=== PATIENT | male | born 1965 | race Caucasian/White ===

== ENCOUNTER → 2019-09-22 11:20 | Outpatient (CLI) | payer OTHER, SELFPAY ==
--- NOTE | ~2019-09-22 | XR_ITS ---
EXAMINATION: XR hip LT min 3V w AP pelvis DATE: 09/22/2019 11:47 INDICATION: Right cyst with arthropathy presenting with left hip pain after moving a couch 2 weeks pr ior. TECHNIQUE: Anteroposterior view of the pelvis and anteroposterior and frog-leg lateral views of the l eft hip were obtained. COMPARISON: None. FINDINGS: Alignment is normal. No fracture or suspected avascular necrosis. Minimal bilateral hip osteoarthriti s with axial predominant nonuniform joint space narrowing. Sacral arches are intact. 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 Lumbar spondylosis with mild to moderate left-sided predominan t disc height loss at L4-L5 and 4 mm right lateral listhesis of L4 on L5. Multiple phleboliths in the right hemipelvis. IMPRESSION: 1. Moderate spondylosis at L4-L5. Otherwise minimal to mild degenerative skeletal changes. Reviewed, dictated and finalized at location A. [employer] IMPRESSION: 1. Moderate spondylosis at L4-L5. Otherwise minimal to mild degenerative skelet al changes.
== END ==
DX: L40.50 Arthropathic psoriasis, unspecified (principal); M25.552 Pain in left hip; Z79.899 Other long term (current) drug therapy; M47.896 Other spondylosis, lumbar region
CPT/HCPCS: 73502

== ENCOUNTER 2023-01-24 00:38 | Day surgery (SDC) | payer OTHER, BC, SELFPAY ==
[2023-01-18 09:07] VITALS: BMI 28.8
[2023-01-24 06:55] VITALS: BP 145/96; PULSE 67; RESP 18; TEMP 36.4; O2SAT 100
[2023-01-24] MEDS: LACTATED RINGERS 1,000 ML 150 ML IV CONT (07:08)
--- NOTE | 2023-01-24 07:31 | WPDANESEPPF ---
Anes - Initial Pre Proc Eval Procedure: Operation Date: 01/24/23 08:00 Proposed Procedures p Colonoscopy - Taurus Rivera MD Date/Time: 01/24/23 07:31 Surgeon: Taurus Rivera MD Pre Op Diagnosis: hx colon polyps Patient Data Age: 57 Gender: M Height: 1.73 m Weight: 86.4 kg Last Vital Signs Temp 36.4 C 01/24/23 06:55 Pulse 67 01/24/23 06:55 Resp 18 01/24/23 06:55 BP 145/96 H 01/24/23 06:55 Pulse Ox 100 01/24/23 06:55 O2 Del Method Room Air 01/24/23 06:55 Allergies Allergy/AdvReac Type Severity Reaction Status Date / Time No Known Allergies Allergy Verified 01/24/23 06:53 Home Medications Medication Instructions Recorded Confirmed Type cholecalciferol (vitamin D3) 125 2,000 unit PO DAILY 12/06/21 01/18/23 History mcg (5,000 unit) capsule folic acid 1 mg tablet 1 mg PO DAILY 12/06/21 01/18/23 History meloxicam 15 mg tablet 15 mg PO DAILY PRN pain #90 tabs 12/06/21 01/18/23 Rx methotrexate sodium 2.5 mg tablet 20 mg PO WEEKLY 12/06/21 01/18/23 History ustekinumab 45 mg/0.5 mL 45 mg subcut . every 3 months 12/06/21 01/18/23 History subcutaneous syringe (Stelara) irbesartan 150 mg tablet 150 mg PO DAILY #30 tabs 12/27/22 01/18/23 Rx mometasone 0.1 % topical cream 1 applic topical PRN PRN psoriasis 01/18/23 01/18/23 History Patient hx anesthesia problems: none Family hx anesthesia problems: none Results Review: All pre-operative results and documents have been reviewed as part of the pre-operative evaluation. [facility] Past Medical History Medical History (Updated 01/10/23 @ 23:08 by Tye Holley MD) Abnormal fasting glucose (01/04/23) Fasting glucose 101 on 01/04/2023. Acute non-recurrent maxillary sinusitis BMI 30.0-30.9,adult BMI 31.0-31.9,adult Colon cancer screening Cough due to ARCHANA inhibitor Encounter for prostate cancer screening PSA 0.58 on 12/19/2021. PSA 0.55 on 01/04/2023. Encounter for wellness examination in adult Essential hypertension Mixed hyperlipidemia (12/19/21) total cholesterol 227, triglycerides 78, HDL 51 and LDL 158 on 12/19/2021. cholesterol 244, triglycerides 107, HDL 55, LDL 167 with ratio 4.4 on 01/04/2023. Obesity (BMI 30.0-34.9) Polyp of colon Psoriasis Psoriatic arthritis Social History Social History (Updated 12/27/22 @ 14:27 by Amy Bird MA) Smoking status: Never smoker Alcohol intake: current Drinks per week: 3 Substance use: never Substance use type: does not use Lack of Transportation: No Lack of Food: Never True Current Housing: I Have Housing Concerned About Future Housing: No Difficulty Paying Gas/Electric Bills: No Difficulty Paying for Meds: No Currently Unemployed: No Education: Trade/Vocational Certificate Difficulty w/ Childcare or Family Care: No Living arrangements: with family Spiritual care concerns: No Anes - Eval Final PreProcedure Day of Procedure 01/24/23 07:31 Patient weight: overweight Heart: regular rate and rhythm Lungs: clear to auscultation and normal air movement Airway: Mallampati scale class II Neurological: alert and oriented Last oral intake: >/= 8 hours ASA classification: II Emergent: no Anesthetic plan: proceed Anesthesia type and monitoring: general GIVS Results Review: All pre-operative results and documents have been reviewed as part of the pre-operative evaluation. Informed Consent: The patient's anesthetic plan and its attendant risks and benefits were discussed with the patient/family/POA. Questions were solicited and answers provided to the satisfaction of the patient/family/POA.
--- NOTE | 2023-01-24 07:52 | PM.HPGS ---
History of Present Illness History of Present Illness Consent: Risks, benefits, and alternatives have been discussed and questions answered. Patient agrees to proceed with procedure. Chief complaint: hx colon polyps Narrative: Dwayne Calvin is a 57 year old male with screening colonoscopy, last one about 20 years ago Review of Systems Constitutional: Constitutional: Denies headache(s) and Denies weakness Eyes: Eyes: Denies blurry vision ENT: Reports Normal hearing present, Denies headache(s) and Denies neck pain Cardiovascular: Cardiovascular: Denies chest pain and Denies dyspnea Respiratory: Respiratory: Denies dyspnea Gastrointestinal: Gastrointestinal: Reports no additional gastrointestinal complaints Genitourinary: Genitourinary: Denies dysuria Musculoskeletal: Musculoskeletal: Denies neck pain Integumentary/Breasts: Skin/Breast: Denies dry skin Neurologic: Reports Normal hearing present, Denies headache(s) and Denies weakness Psychiatric: Psychiatric: Denies anxiety Endocrine: Endocrine: Denies change in body appearance Hematologic/Lymphatic: Hematologic/Lymphatic: Denies easy bleeding Allergic/Immunologic: Allergic/Immunologic: Denies urticaria PMFSH Past Medical History Medical History (Updated 01/10/23 @ 23:08 by Tye Holley MD) Abnormal fasting glucose (01/04/23) Fasting glucose 101 on 01/04/2023. Acute non-recurrent maxillary sinusitis BMI 30.0-30.9,adult BMI 31.0-31.9,adult Colon cancer screening Cough due to ARCHANA inhibitor Encounter for prostate cancer screening PSA 0.58 on 12/19/2021. PSA 0.55 on 01/04/2023. Encounter for wellness examination in adult Essential hypertension Mixed hyperlipidemia (12/19/21) total cholesterol 227, triglycerides 78, HDL 51 and LDL 158 on 12/19/2021. cholesterol 244, triglycerides 107, HDL 55, LDL 167 with ratio 4.4 on 01/04/2023. Obesity (BMI 30.0-34.9) Polyp of colon Psoriasis Psoriatic arthritis Social History Social History (Updated 12/27/22 @ 14:27 by Amy Bird MA) Smoking status: Never smoker Alcohol intake: current Drinks per week: 3 Substance use: never Substance use type: does not use Lack of Transportation: No Lack of Food: Never True Current Housing: I Have Housing Concerned About Future Housing: No Difficulty Paying Gas/Electric Bills: No Difficulty Paying for Meds: No Currently Unemployed: No Education: Trade/Vocational Certificate Difficulty w/ Childcare or Family Care: No Living arrangements: with family Spiritual care concerns: No Meds Home Medications and Allergies Home Medications Medication Instructions Recorded Confirmed Type cholecalciferol (vitamin D3) 125 2,000 unit PO DAILY 12/06/21 01/18/23 History mcg (5,000 unit) capsule folic acid 1 mg tablet 1 mg PO DAILY 12/06/21 01/18/23 History meloxicam 15 mg tablet 15 mg PO DAILY PRN pain #90 tabs 12/06/21 01/18/23 Rx methotrexate sodium 2.5 mg tablet 20 mg PO WEEKLY 12/06/21 01/18/23 History ustekinumab 45 mg/0.5 mL 45 mg subcut . every 3 months 12/06/21 01/18/23 History subcutaneous syringe (Stelara) irbesartan 150 mg tablet 150 mg PO DAILY #30 tabs 12/27/22 01/18/23 Rx mometasone 0.1 % topical cream 1 applic topical PRN PRN psoriasis 01/18/23 01/18/23 History Allergies Allergy/AdvReac Type Severity Reaction Status Date / Time No Known Allergies Allergy Verified 01/24/23 06:53 Vital Signs Vital Signs - 24 hr 01/24/23 06:55 Temperature 97.6 F Pulse Rate 67 Respiratory Rate 18 Blood Pressure 145/96 H Pulse Oximetry 100 Oxygen Delivery Room Air Exam Const: General: comfortable and no acute distress HENMT: Face/Nose/Sinus: Normal nares present Eyes: General: appearance normal, both eyes and all related structures Neck: Neck: no JVD Resp: Auscultation: clear to auscultation bilaterally Cardio: Rate: regular rate Rhythm: regular rhythm GI: Inspection: non-distended GI Palp: Yes S
[2023-01-24 08:10] VITALS: BP 114/87; PULSE 68; RESP 18; O2SAT 94
[2023-01-24 08:20] VITALS: BP 114/90; PULSE 62; RESP 20; O2SAT 97
[2023-01-24 08:30] VITALS: BP 130/78; PULSE 64; RESP 18; O2SAT 99
== END 2023-01-24 08:39 | disposition home or self-care (01) ==
PROVIDERS: PCP Family Medicine; Visit Provider Internal Medicine Gastroenterology
PROC: 0DJD8ZZ Inspection of Lower Intestinal Tract, Via Natural or Artificial Opening Endoscopic (ICD-10-PCS; CPT 45378; principal; 2023-01-24 08:00)
DX: Z12.11 Encounter for screening for malignant neoplasm of colon (principal); K57.30 Diverticulosis of large intestine without perforation or abscess without bleeding; K64.8 Other hemorrhoids; Z86.010 Personal history of colon polyps; I10 Essential (primary) hypertension; E78.2 Mixed hyperlipidemia; L40.50 Arthropathic psoriasis, unspecified; L40.9 Psoriasis, unspecified; Z79.631 Long term (current) use of antimetabolite agent; Z79.620 Long term (current) use of immunosuppressive biologic; E66.9 Obesity, unspecified; Z68.29 Body mass index [BMI] 29.0-29.9, adult
CPT/HCPCS: 45378; J2704; J7120

== ENCOUNTER 2025-05-08 10:22 | Outpatient (CLI) | payer OTHER, BC, SELFPAY ==
--- NOTE | ~2025-05-08 | XR_ITS ---
EXAMINATION: XR hand RT 2V, 05/08/2025 10:35 CDT HISTORY: Arthropathic psoriasis, unspecified COMPARISON: No comparisons available. Findings: No acute fracture or malalignment. Minimal degenerative changes of the distal and proximal interphalangeal joints, no erosions are identified Soft tissues unremarkable. Impression: No acute fracture or malalignment. Reviewed, dictated and finalized at location A. Impression: No acute fracture or malalignment.
--- NOTE | ~2025-05-08 | XR_ITS ---
EXAMINATION: XR hand LT 2V, 05/08/2025 10:35 CDT HISTORY: Arthropathic psoriasis, unspecified COMPARISON: No comparisons available. Findings: No acute fracture or malalignment. Severe degenerative changes of the second metacarpal phalangeal joint with small erosions noted. Soft tissues unremarkable. Impression: Degenerative changes detailed above Reviewed, dictated and finalized at location A. Impression: Degenerative changes detailed above
== END 2025-05-08 10:23 | disposition home or self-care (01) ==
PROVIDERS: PCP Family Medicine; Visit Provider Physician Assistant Medical
DX: M19.042 Primary osteoarthritis, left hand (principal); Z79.899 Other long term (current) drug therapy
CPT/HCPCS: 73120